=== PATIENT | male | born 1980 | race Caucasian/White ===

== ENCOUNTER 2017-09-23 16:47 | Emergency (ER) | END 2017-09-23 17:00 | disposition home or self-care (01) ==

== ENCOUNTER 2017-09-25 13:04 | Emergency (ER) | END 2017-09-25 16:19 | disposition home or self-care (01) ==

== ENCOUNTER 2017-10-31 14:43 | Emergency (ER) | END 2017-10-31 17:03 | disposition home or self-care (01) ==

== ENCOUNTER 2017-11-06 23:28 | Emergency (ER) | END 2017-11-07 02:41 | disposition home or self-care (01) ==

== ENCOUNTER 2017-11-08 21:13 | Emergency (ER) | END 2017-11-09 00:45 | disposition home or self-care (01) ==

== ENCOUNTER 2018-09-08 16:15 | Emergency (ER) | payer OTHER ==
[~2018-09-08] VITALS: Ht 170.2 cm; Wt 92.0 kg
[~2018-09-08 16:15] MED LIST: HAL2 PO; HYDR-843 PO; IBUP-1542 PO; LORA1TAB PO; TRAM50TA2 PO
[2018-09-08 16:20] VITALS: Ht 170.2 cm; Wt 92.0 kg
--- NOTE | 2018-09-08 20:58 | ERD ---
ER Documentation Chief Complaint Chief Complaint pt bib self, denies SI/HI but got out of detention 5 days ago, needs help HPI This is a 37-year-old male with a past medical history of psychiatric illness who is presenting today feeling very anxious. The patient reports getting out of detention approximately 5 days ago. He reports moving recently and needing to transfer his psychiatric care as he no longer follows with his previous psychiatrist. The patient does endorse auditory and visual hallucinations, but they are not threatening. The patient reports that these are chronic and unchanged. The patient endorses seeing abuts and penises and shadow figures. He endorses hearing whispers, but they do not instruct him to do anything dangerous. The patient is adamant that he does not have any suicidal or homicidal ideations. He is simply hoping to obtain medication to help calm his nerves. The patient does report taking Haldol every night. He still has this medication and is taking it compliantly. The patient denies feeling sick recently. The patient denies fever or chills. The patient has had no headache or vision changes. The patient does not endorse neck or back pain. The patient denies lightheadedness or dizziness. The patient has had no chest pain or trouble breathing. The patient denies nausea or vomiting. The patient denies abdominal pain. The patient denies changes to bowel movements or urination. The patient has had no focal deficits. The patient has had no weakness or numbness or tingling to the face or extremities. ROS All systems reviewed and are negative except as per history of present illness. Medications Home Meds Reported Medications Haloperidol* (Haloperidol*) 10 Mg Tablet, 10 MG PO QHS, TAB 09/08/18 Discontinued Reported Medications Hydroxyzine Hcl* (Hydroxyzine Hcl*) 25 Mg Tablet, 25 MG PO Q6 PRN for ANXIETY, #30 TAB 10/31/17 Haloperidol* (Haldol*) 2 Mg Tab, 7 MG PO QHS, TAB 10/31/17 Discontinued Scripts Lorazepam* (Lorazepam*) 1 Mg Tablet, 1 MG PO Q8H PRN for ANXIETY, #10 TAB Prov:OLIVA KRIAN 11/09/17 Tramadol HCl (Tramadol HCl) 50 Mg Tablet, 50 MG PO Q6 PRN for SEVERE PAIN LEVEL 7-10, #20 TAB Prov:ANAHI AGUILAR NP 11/07/17 Ibuprofen* (Motrin*) 600 Mg Tab, 600 MG PO Q6H PRN for PAIN AND OR ELEVATED TEMP, #30 TAB Prov:ANAHI AGUILAR KATHY Self NP 11/07/17 Allergies Allergies: Coded Allergies: No Known Allergy (Unverified , 09/25/17) PMhx/Soc History of Surgery: Yes (tongue age 12) Anesthesia Reaction: No Hx Neurological Disorder: No Hx Respiratory Disorders: No Hx Cardiac Disorders: No Hx Psychiatric Problems: Yes (bipolar, insomnia, SCHIZOPHRENIA) Hx Miscellaneous Medical Probl: No Hx Alcohol Use: Yes (socially) Hx Substance Use: Yes (Meth) Hx Tobacco Use: Yes Smoking Status: Current every day smoker FmHx Family History: No diabetes Physical Exam Vitals Vital Signs Date Temp Pulse Resp B/P (MAP) Pulse Ox O2 O2 Flow FiO2 Time Delivery Rate 09/08/18 90 18 120/94 99 Room Air 21:39 (103) 09/08/18 98.3 79 20 133/81 98 Room Air 19:46 (98) 09/08/18 98.3 122 20 129/82 98 16:20 (98) Physical Exam Const: No acute distress Head: Atraumatic Eyes: Normal Conjunctiva ENT: Normal External Ears, Nose and Mouth. Neck: Full range of motion. No meningismus. Resp: Clear to auscultation bilaterally Cardio: Regular rhythm. Mild tachycardia. No murmurs Abd: Soft, non tender, non distended. Normal bowel sounds Skin: No petechiae or rashes Back: No midline or flank tenderness Ext: No cyanosis, or edema Neur: Awake and alert Psych: Anxious. Endorses chronic auditory and visual hallucinations. Has no suicidal and homicidal ideations. Results 24 hrs Current Medications Medications Dose Sig/Nelsy Start Time Status Last (Trade) Ordered Route PRN Stop Time Admin Dose Reason Admin Haloperidol 5 mg ONCE ONCE 09/08/18 DC 09/08/18 (Haldol) PO 21:30 21:30 09/08/18 21:31 Lorazepam 1 mg ONCE ONCE 09/08/18 DC 09/08/18 (Ativan) PO 21:30 21:30 09/08/18 21:31 Procedures/MDM MDM The patient's presentation warrants further investigation. Previous medical records, if available, were reviewed. EKG EKG read by me: Rate/Rhythm: Sinus tachycardia at 107 bpm Intervals: Normal [place]: Normal Impression: No evidence of acute ischemia. Sinus tachycardia. CXR FINDINGS: The heart and mediastinum are within normal limits. The lungs are clear. There is no pleural effusion or pneumothorax. IMPRESSION: No acute disease. Electronically viewed and signed by .Favio Merrill MD, on 09/08/2018 21:05 TREATMENT/DISPOSITION The patient presents with symptoms concerning for anxiety. The patient was given a dose of Ativan in the emergency department. I explained to the patient that the patient needs to follow-up with his psychiatrist for any refill medications of his psychiatric medications. The patient endorsed that he was not able to follow with his psychiatrist any longer. The patient was provided resources to reestablish care. The patient also has schizophrenia and bipolar disorder. The patient endorses chronic auditory and visual hallucinations that are unchanged and nonthreatening. The patient denies any suicidal or homicidal ideations. I do not believe the patient is a danger to himself or others. The patient may follow-up in an outpatient setting. The patient had not yet taken his Haldol this evening. He was given a dose in the emergency department. The patient was also evaluated from a cardiopulmonary perspective. The patient's chest xray does not reveal pneumonia or pneumothorax or pleural effusions or pulmonary edema. The patient does not have a widened mediastinum and does not have signs or symptoms concerning for thoracic aortic aneurysm or dissection. The patient does not have pneumomediastinum or signs concerning for esophageal tear or rupture. The patient has no clinical or radiographic signs of pericardial effusion or tamponade. The patient does not have pneumoperitoneum a nd I have decreased suspicion of viscus perforation as possible referred pain. The patient does not have a history of heart failure and I have low suspicion for this. The patient does not have a diagnosis of COPD and is not wheezing today. The patient is not tachypneic or hypoxic. The patient is breathing comfortably and without pleuritic pain. The patient is not on hormonal therapy. The patient has no history of clotting or bleeding disorders. The patient has no calf tenderness. The patient has had no hemoptysis. I have decreased suspicion for PE. The patient's EKG reveals tachycardia which I suspect to be related to his anxiousness. It is otherwise reassuring without any evidence of cardiac ischemia. I have low suspicion for acute coronary syndrome. DISCHARGE Upon reevaluation of the patient, symptoms have improved. No emergent diagnoses were identified. At this time, I feel that the patient stable for discharge. The patient was instructed to follow-up with a primary care physician in 1-3 days. The patient will be given strict precautions with which to return to the emergency department. Prescriptions: None The patient's blood pressure was elevated at greater than 120/80 while in the emergency department. The patient was otherwise stable with no evidence of hypertensive urgency or emergency. The patient does not require admission for blood pressure control. I have discussed with the patient the risks of hypertension. I have instructed the patient to return to the ER for any new or worsening symptoms including chest pain, shortness of breath, headache, blurred vision, confusion, nausea, vomiting or LOC. I have advised the patient to follow up with the primary care physician for outpatient monitoring and treatment for hypertension in 1-3 days. Disclaimer: Inadvertent spelling and grammatical errors are likely due to EHR/dictation software use and do not reflect on the overall quality of patient care. Note that the electronic time recorded on this note does not necessarily reflect the actual time of the patient encounter. Departure Diagnosis: Primary Impression: Anxiousness Additional Impression: Sinus tachycardia Condition: Stable Patient Instructions: Anxiety Reaction, Sinus Tachycardia Additional Instructions: Thank you for for coming to [facility] for your care today. Please ask your nurse or provider if you have questions about your care today and do not leave until all your questions have been answered. Please use any medications given as directed and follow-up with your doctor (or the doctor you were referred to) in the next 1-3 days. If you do not have a primary care doctor you may follow up at the [facility] or [facility] (listed below). You may also use motrin and tylenol as needed for fever and/or pain unless instructed otherwise by your provider or nurse. Indications for more urgent follow-up have been discussed, but you may return to the Emergency Department at ANY time for any worrisome or worsening symptoms. If you have abdominal pain, please know that no test or exam you received is perfect and you should follow up within 8 hours for continued pain. If you had any imaging studies today, such as an X-Ray or CT Scan, these studies will be reviewed later by a radiologist. You will be called if there are important findings that were not identified today, so make sure the contact information you provided at registration is correct. If you received any narcotic pain control medicine today, such as Vicodin, Morphine or Dilaudid, your coordination and judgment may be affected for a number of hours. Please do not drive or operate heavy machinery, and you may want someone to assist you at home. If you were given a prescription for narcotic medication, be aware that it is very addictive- use sparingly and only if necessary. PLEASE SEEK FURTHER EVALUATION AND MANAGEMENT AT YOUR DOCTORS OFFICE WITHIN THE NEXT 1-3 DAYS. IT IS YOUR RESPONSIBILITY TO MAKE AN APPOINTMENT FOR FOLOW-UP CARE. IF YOU HAVE A PRIMARY DOCTOR, PLEASE CALL THEIR OFFICE TO SCHEDULE AN APPOINTMENT FOR FOLLOW UP. IF YOU DO NOT HAVE A PRIMARY DOCTOR YOU CAN CALL OUR PHYSICIAN REFERRAL HOTLINE AT IF YOU CAN NOT AFFORD TO SEE A PHYSICIAN YOU CAN CHOSE FROM THE FOLLOWING [facility]: [facility] [address] [facility]. [facility] [address] [employer] [facility]. [facility] [address] [facility]. [facility] [address] [facility]. [facility] [id number] [facility]. [facility]. [address] ZAID ALMONTE MD Sep 08, 2018 20:58
[2018-09-08] MEDS ORDERED: HALO10TA PO (21:22)
[2018-09-08] MEDS ORDERED: LORAZEPAM 1 MG TAB PO ONE (21:30)
[2018-09-08] MEDS ORDERED: HALOPERIDOL 5 MG TAB PO ONE (21:30)
[2018-09-08 21:39] VITALS: BP 120/94; PULSE 90; RESP 18
== END 2018-09-08 21:31 | disposition home or self-care (01) ==
LOC: E/R 16:15
DX: F41.9 Anxiety disorder, unspecified (principal); F17.210 Nicotine dependence, cigarettes, uncomplicated; R00.0 Tachycardia, unspecified
CPT/HCPCS: 71045; 93005; Z7502; Z7610